=== PATIENT | male | born 2000 | race Caucasian/White ===

== ENCOUNTER 2020-04-23 13:39 | Outpatient (CLI) | payer OTHER, SELFPAY ==
--- NOTE | ~2020-04-23 | XR_ITS ---
XR sinus min 3V DATE: 04/23/2020 14:08 INDICATION: Headache TECHNIQUE: Sunil Aldana, lateral and submental vertical views COMPARISON: None FINDINGS: The paranasal sinuses and mastoid air cells are normally developed and aerated. The frontoz ygomatic sutures and zygomatic arches are intact. No facial fracture is evident. Normal sella turcica . IMPRESSION: Negative Reviewed, dictated and finalized at location B. S COUNTER CLERK IMPRESSION: Negative
--- NOTE | ~2020-04-23 | XR_ITS ---
EXAMINATION: XR chest 2V 04/23/2020 14:08 INDICATION: Generalized hyperhidrosis PROCEDURE: 2 view chest COMPARISON: No prior studies for comparison. FINDINGS: The lungs are clear. The cardiomediastinal silhouette is within normal limits. There are no pleural effusions. There is no pneumothorax suspected. IMPRESSION: 1: NO ACUTE CARDIOPULMONARY DISEASE. Reviewed, dictated and finalized at location A. WOOD CUTTER
== END 2020-04-23 13:40 | disposition home or self-care (01) ==
PROVIDERS: PCP Internal Medicine; Visit Provider Internal Medicine
DX: R61 Generalized hyperhidrosis (principal); R51.9 Headache, unspecified
CPT/HCPCS: 70220; 71046

== ENCOUNTER 2020-05-14 16:27 | Outpatient (CLI) | payer OTHER, SELFPAY ==
--- NOTE | ~2020-05-14 | CT_ITS ---
EXAMINATION: CT chest abdomen pelvis w con DATE: 05/14/2020 17:35 INDICATION: Elevated C-reactive protein TECHNIQUE: Computed tomography (CT) of the chest, abdomen, and pelvis was performed with 100 cc Omnip aque 350 intravenous contrast. Automated exposure control and iterative reconstruction technique were employed. Exam dose: 1226.93 mGy-cm total exam DLP. COMPARISON: 04/23/2020 2 view chest FINDINGS: CHEST CT: No pulmonary infiltrate or consolidation or suspicious pulmonary mass lesion is identified. Occasiona l very small pulmonary nodular densities are likely a result of old granulomatous disease. No hilar or mediastinal mass lesion or lymphadenopathy. No thoracic aortic aneurysm or dissection. No rmal heart size. There is trace pericardial fluid. ABDOMEN/PELVIS CT: The liver, gallbladder, bile ducts, pancreas and pancreatic duct are unremarkable. Spleen measures upper limits of normal size at 12.4 cm height. Normal morphology of the adrenal glands. No renal mass lesion or urinary tract calculus or hydroureteronephrosis. Normal caliber of the abdominal aorta. There are occasional nonenlarged periaortic and aortocaval and scattered mesenteric lymph nodes. The urinary bladder, prostate gland and seminal vesicles are unremarkable. Normal appendix. No bowel obstruction, bowel wall thickening, pneumatosis or intraperitoneal free air . No significant abnormality of the skeleton. IMPRESSION: Reviewed, dictated and finalized at [facility]. Reviewed, dictated and finalized at location A. CTOR SPEECH LANGUAGE IMPRESSION:
== END 2020-05-14 16:28 | disposition home or self-care (01) ==
PROVIDERS: Family Provider Pediatrics; PCP Internal Medicine; Visit Provider Internal Medicine
DX: R79.82 Elevated C-reactive protein (CRP) (principal); R61 Generalized hyperhidrosis
CPT/HCPCS: 71260; 74177; Q9967